=== PATIENT | male | born 2000 | race Caucasian/White ===

== ENCOUNTER 2018-12-19 12:28 | Emergency (ER) | payer MEDICAID, MEDICARE ==
--- NOTE | 2018-12-19 14:51 | ED Physician Documentation ---
History of Present Illness - Stated complaint Stated Complaint: RT EAR PX - Chief complaint Chief Complaint: Heent - History obtained from History obtained from: Patient, Family - Additonal information Additional information: Patient is a 18-year-old presenting with his mother with concern for right ear pain. Patient denies pain to the left ear and both mother and patient deny any external ear changes or ear drainage. Mother and patient also deny sinus pain or pressure, rhinorrhea, sore throat, cough, difficulty breathing, or fever. No particular improving or worsening factors to his symptoms noted. Review of Systems Constitutional: denies: Fever Ears: reports: Ear pain. denies: Drainage/discharge PD PAST MEDICAL HISTORY - Present Medications Home Medications: Ambulatory Orders Medication Instructions Recorded Confirmed Amox/Clav 875/125 [Augmentin] 1 each PO Q12H #14 tablet 12/19/18 - Allergies Allergies/Adverse Reactions: Allergies Allergy/AdvReac Type Severity Reaction Status Date / Time No Known Drug Allergies Allergy Verified 12/19/18 12:54 PD ED PE NORMAL - General General: Other (Blind, sitting comfortably in chair, slight rocking back and forth, talkative) - HEENT HEENT: Atraumatic, Pharynx benign. No: Ears normal (External ears unremarkable. Both ear canals occluded with earwax. Unable to fully visualize TM, but do not see signs of infection or other complication.) - Cardiac Cardiac: RRR, No murmur - Respiratory Respiratory: No respiratory distress, Clear bilaterally - Derm Derm: Normal color, Warm and dry, No rash Results - Vitals Vitals: Vital Signs - 24 hr 12/19/18 12:52 Temperature 37.0 C Heart Rate 102 H Respiratory 18 Rate Blood Pressure 129/79 O2 Saturation 100 Oxygen O2 Source Room air PD MEDICAL DECISION MAKING - ED course Complexity details: considered differential, d/w patient, d/w family ED course: Most concerning for cerumen impaction causing discomfort. Did not see evidence that would indicate otitis externa, otitis media, or mastoiditis. Also do not have high suspicion for sinusitis, tonsillitis, pharyngitis, or pneumonia. No other signs of acute or systemic illness present. Discussed [id number] remedies as well as return precautions and follow-up. Mother voiced understanding and are comfortable with discharge plan. Of note, Augmentin prescription incorrectly entered on wrong patient and do not plan to provide this patient with antibiotics as do not have concern for infection. Departure - Departure Disposition: 01 Home, Self Care Clinical Impression: Cerumen impaction Qualifiers: Laterality: bilateral Qualified Code(s): H61.23 - Impacted cerumen, bilateral Condition: Good Instructions: ED Wax Ear Home Removal, ED Earwax Removal Follow-Up: your,doctor [Other] - Within 3 Days Prescriptions: Amox/Clav 875/125 [Augmentin] 1 each PO Q12H #14 tablet Comments: Recommend use of [id number] earwax drops to help remove additional earwax and relieve pain. May also use a protein/Tylenol as needed for inflammation and pain control. Please follow-up with primary care physician in next 2-3 days and return to ED sooner if experience worsening symptoms or other concerns.
[2018-12-19 15:38] VITALS: BP 129/80
== END 2018-12-19 15:40 | disposition home or self-care (01) ==
LOC: ED 12:28
DX: H61.23 Impacted cerumen, bilateral (principal)
CPT/HCPCS: 99283

== ENCOUNTER 2019-09-02 11:29 | Emergency (ER) | payer MEDICARE, MEDICAID ==
[2019-09-02 11:49] VITALS: BP 138/89
--- NOTE | 2019-09-02 12:22 | ED Physician Documentation ---
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 His mother notes that he has been itching is quite a bit and she is noted him some bleeding to the area. She states that she did get some new dryer fabric but the upper part of his body does not appear to be affected. He does work at a [employer] and he does attend a school. The patient has not had this specific rash previously. Review of Systems Constitutional: denies: Fever Eyes: denies: Decreased vision Nose: denies: Congestion Throat: denies: Sore throat Respiratory: denies: Cough GI: denies: Vomiting : denies: Dysuria Skin: reports: Rash Musculoskeletal: reports: Extremity pain. denies: Neck pain, Back pain Neurologic: denies: Generalized weakness, Focal weakness, Numbness PD PAST MEDICAL HISTORY - Past Surgical History Past Surgical History: No - Present Medications Home Medications: Ambulatory Orders Medication Instructions Recorded Confirmed Melatonin 2 mg PO DAILY 09/02/19 09/02/19 Permethrin 5% Cream 30 gm TP ONCE #60 cream..g. 09/02/19 - Allergies Allergies/Adverse Reactions: Allergies Allergy/AdvReac Type Severity Reaction Status Date / Time No Known Drug Allergies Allergy Verified 09/02/19 11:45 - Social History Does the pt smoke?: No Smoking Status: Never smoker Does the pt drink ETOH?: No Does the pt have substance abuse?: No PD ED PE NORMAL - Vitals Vital signs reviewed: Yes (hypertensive ) - General General: No acute distress, Well developed/nourished - HEENT HEENT: Atraumatic, PERRL, EOMI - Respiratory Respiratory: No respiratory distress - Derm Derm: Normal color, Warm and dry, Other (There are patches of raised tiny papules that are excoriated consistent with the possibility of scabies. This involves only the lower extremities and not the trunk there is one spot on the left forearm. ) - Extremities Extremities: No edema - Neuro Neuro: No motor deficit, No sensory deficit Eye Opening: Spontaneous Motor: Obeys Commands Verbal: Oriented GCS Score: 15 - Psych Psych: Normal mood, Normal affect Results - Vitals Vitals: Vital Signs - 24 hr 09/02/19 11:45 Temperature 36.8 C Heart Rate 80 Respiratory 18 Rate Blood Pressure 138/89 H O2 Saturation 96 Oxygen O2 Source Room air PD MEDICAL DECISION MAKING - ED course Complexity details: considered differential, d/w patient, d/w family ED course: 18 year-old male with a nonspecific appearing rash that is quite itchy likely has scabies and we will treat for this. Departure - Departure Disposition: 01 Home, Self Care Clinical Impression: Scabies Condition: Stable Instructions: ED Scabies Follow-Up: [facility] [Provider Group] [facility] [Provider Group] Prescriptions: Permethrin 5% Cream 30 gm TP ONCE #60 cream..g.
== END 2019-09-02 12:36 | disposition home or self-care (01) ==
LOC: ED 11:29
DX: B86 Scabies (principal)
CPT/HCPCS: 99282; 99284